=== PATIENT | female | born 1965 | race Caucasian/White ===

== ENCOUNTER → 2020-07-17 01:20 | Outpatient (CLI) | payer OTHER, SELFPAY ==
[2020-07-18 19:27] LABS: SARS-CoV-2 RNA PCR Negative
== END ==
PROVIDERS: PCP Family Medicine; Visit Provider Internal Medicine Gastroenterology
DX: Z01.812 Encounter for preprocedural laboratory examination (principal); Z20.822 Contact with and (suspected) exposure to COVID-19
CPT/HCPCS: C9803; U0003; U0005

== ENCOUNTER 2020-07-20 02:06 | Day surgery (SDC) | payer OTHER, SELFPAY ==
[2020-07-10 13:45] VITALS: BMI 30.1
[2020-07-20 08:52] VITALS: BP 124/81; PULSE 87; RESP 16; TEMP 36.5; O2SAT 100
[2020-07-20] MEDS: LACTATED RINGERS 1,000 ML 150 ML IV CONT (09:05)
--- NOTE | 2020-07-20 09:21 | WPDANESEPPF ---
Anes - Initial Pre Proc Eval Procedure: Operation Date: 07/20/20 10:00 Proposed Procedures p Screening Colonoscopy - Ravin Jones MD Date/Time: 07/20/20 09:21 Surgeon: Ravin Jones MD Pre Op Diagnosis: neoplasm screening Patient Data Age: 55 Gender: F Height: 5 ft Weight: 68.8 kg Last Vital Signs Temp 97.7 F 07/20/20 08:52 Pulse 87 07/20/20 08:52 Resp 16 07/20/20 08:52 BP 124/81 07/20/20 08:52 Pulse Ox 100 07/20/20 08:52 Allergies Allergy/AdvReac Type Severity Reaction Status Date / Time No Known Allergies Allergy Unverified 07/20/20 08:51 Home Medications Medication Instructions Recorded Confirmed Type No Home Medications 07/10/20 07/20/20 History Patient hx anesthesia problems: none Family hx anesthesia problems: none PMFSH Past Medical History Medical History (Updated 07/20/20 @ 09:21 by Juvencio Lopez MD) Overweight (BMI 25.0-29.9) Social History Social History Alcohol intake: current Drinks per week: 2 Living arrangements: with family Gender identity (if verbalized by the patient): Female Spiritual care concerns: No Anes - Eval Final PreProcedure Day of Procedure 07/20/20 09:21 Patient weight: overweight Heart: regular rate and rhythm Lungs: clear to auscultation Airway: Mallampati scale class III Neurological: alert and oriented Last oral intake: >/= 8 hours ASA classification: II Emergent: no Anesthetic plan: proceed Anesthesia type and monitoring: general GIVS and standard monitoring Informed Consent: The patient's anesthetic plan and its attendant risks and benefits were discussed with the patient/family/POA. Questions were solicited and answers provided to the satisfaction of the patient/family/POA.
--- NOTE | 2020-07-20 09:23 | PM.HPGS ---
History of Present Illness History of Present Illness Consent: Risks, benefits, and alternatives have been discussed and questions answered. Patient agrees to proceed with procedure. Chief complaint: neoplasm screening Narrative: Justyna Mendenhall is a 55 year old female referred for colon cancer screening. This is her 1st colonoscopy Review of Systems Review of Systems: All systems reviewed & are unremarkable except as noted in HPI and below PMFSH Past Medical History Medical History Overweight (BMI 25.0-29.9) Social History Social History Alcohol intake: current Drinks per week: 2 Living arrangements: with family Gender identity (if verbalized by the patient): Female Spiritual care concerns: No Meds Home Medications and Allergies Home Medications Medication Instructions Recorded Confirmed Type No Home Medications 07/10/20 07/20/20 History Allergies Allergy/AdvReac Type Severity Reaction Status Date / Time No Known Allergies Allergy Unverified 07/20/20 08:51 Vital Signs Vital Signs - 24 hr 07/20/20 08:52 Temperature 36.5 C Pulse Rate 87 Respiratory Rate 16 Blood Pressure 124/81 Pulse Oximetry 100 Exam Resp: Auscultation: clear to auscultation bilaterally Cardio: Rate: regular rate Rhythm: regular rhythm GI: GI Palp: Yes Soft to palpation and No Tenderness to palpation present (GI) Assessment and Plan Assessment and plan (1) Colon cancer screening: Code(s): Z12.11 - Encounter for screening for malignant neoplasm of colon Status: Acute Assessment and Plan: Colonoscopy with possible biopsy or polypectomy or cautery or injection of substances.
[2020-07-20 10:15] VITALS: BP 91/59; PULSE 76; RESP 20
[2020-07-20 10:25] VITALS: BP 99/64; PULSE 73; RESP 19; O2SAT 100
[2020-07-20 10:35] VITALS: BP 116/74; PULSE 70; RESP 19; O2SAT 98
== END 2020-07-20 10:45 | disposition home or self-care (01) ==
PROVIDERS: PCP Family Medicine; Visit Provider Internal Medicine Gastroenterology
PROC: 0DJD8ZZ Inspection of Lower Intestinal Tract, Via Natural or Artificial Opening Endoscopic (ICD-10-PCS; CPT 45378; principal; 2020-07-20 10:00)
DX: Z12.11 Encounter for screening for malignant neoplasm of colon (principal)
CPT/HCPCS: 45378; C9803; J2001; J2704; J7120; U0003; U0005

== ENCOUNTER 2024-08-09 14:29 | Emergency (ER) | payer OTHER, SELFPAY ==
--- NOTE | ~2024-08-09 | CT_ITS ---
CT abdomen pelvis w con Ordering provider: Miko Leung MD History: 59 years Female with . Abdominal pain . Comparison: November 29, 2014 Technique: CT abdomen and pelvis with IV and without oral contrast. Automated exposure control and it erative reconstruction technique were employed. The dose-length product was 410.45 mGy-cm. 100 ML Omn ipaque 350 was given IV. Findings: VISUALIZED LOWER CHEST: Dependent atelectatic changes. UPPER ABDOMINAL ORGANS: Liver: Fat infiltration. Gallbladder: Status post cholecystectomy. Spleen: Normal. Stomach/duodenum: Normal. Pancreas: Normal. Adrenals: Normal. Kidneys: Normal. PELVIC ORGANS: The bladder is underfilled. BOWEL AND MESENTERY: Colon: No evidence of diverticulitis. No evidence of diverticulitis. Small Bowel: Normal. No obstruction. Peritoneum/mesentery: No free air or free fluid. No mesenteric lymphadenopathy. RETROPERITONEUM: Normal aorta. No retroperitoneal lymphadenopathy. MUSCULOSKELETAL: Superficial soft tissues: Small fat-containing umbilical hernia. The superficial soft tissues are nor mal. Bones: Normal spine. IMPRESSION: 1. No evidence of appendicitis, diverticulitis or intestinal obstruction. 2. Fat infiltration of the liver. 3. Small fat-containing umbilical hernia. Reviewed, dictated and finalized at location A.
[2024-08-09 14:38] VITALS: BP 116/72; PULSE 101; RESP 16; TEMP 36.9; O2SAT 97
--- OUTSIDE RECORDS SUMMARY | 2024-08-09 15:23 | XMS_ITS | Clinical Summary ---
Author Organization [facility] Address [address] [place] [address] Care Team Providers Care Sales And Training Specialist Name Role Phone Amanda Joann Gustafson [facility] Primary Care Provider + Allergies Active Allergy Reactions Criticality Noted Date Comments Gramineae Pollens Runny Nose Low 01/02/2023 Medications Blood Glucose Monitoring Suppl (POGO AUTOMATIC BLOOD GLUCOSE) Device see administration instructions. 06/15/19 24 Active cetirizine (ZYRTEC) 10 MG tablet Take 1 tablet (10 mg total) by mouth daily. Active ibuprofen (MOTRIN) 200 MG tablet Take by mouth every 6 (six) hours as needed for pain Active POGO AUTOMATIC TEST CARTRIDGES Test SUBCUTANEOUSLY DAILY 08/28/19 24 Active BD PEN NEEDLE MILTON 2ND GEN 32G X 4 MM Misc USE SUBCUTANEOUSLY DAILY 08/31/19 24 Active semaglutide (OZEMPIC, 0.25 OR 0.5 MG/DOSE,) 2 MG/3ML injection (PEN)Indicatio ns:Diabetes Mellitus Inject 0.5 mg into the skin every 7 days. Indications: Diabetes 3 mL 2 08/07/19 25 Active semaglutide (OZEMPIC, 0.25 OR 0.5 MG/DOSE,) 2 MG/3ML injection (PEN)Indicatio ns:Diabetes Mellitus Inject 0.5 mg into the skin every 7 days. Indications: Diabetes 3 mL 2 05/15/19 25 025 Discontin ued(Reord er) Active Problems Problem Noted Date Diagnosed Date Type 2 diabetes mellitus wit hout complication, with long-term current use of insulin ([facility]/HCC [facility]/HCC) 02/15/2024 Class 1 obesity due to exces s calories with serious comorbidity and body mass index (BMI) of 32.0 to 32.9 in adult 02/15/2024 Fibrocystic disease of breast 01/18/2024 Sensorineural hearing loss (SNHL) of both ears 1 03/02/2023 Tinnitus of both ears 01/01/2024 Resolved Problems Problem Noted Date Diagnosed Date Resolved Date Breast lump 01/18/2024 01/18/2024 Encounters Date Type Department Care Team Description 07/27/2024 7:20 AM CDT Office Visit [facility] Family & Internal Medicine [facility] [address] [place] [address] Joann Patel, TERMITE CONTROL SERVICER- Follow Up 07/27/2024 Travel from Last 3 Months Immunizations Immunization Administration Dates Next Due Influenza Adult (Generic) 01/06/2022,,12/04/2019,2017 MMR 10/20/2016 MODERNA COVID-19 (12+) MRNA, LNP-S, PF, 100 MCG/ 0.5 ML DOSE 06/12/2020,05/15/2020 Shingrix 08/22/2022,03/07/2022 Family History Medical History Relation Comments Lung Cancer Father epiglottis cancer Father Diabetes Maternal Aunt Heart Attack Maternal Aunt COPD Mother Diabetes Mother Heart Attack Mother Hypertension Mother Lung Cancer Mother Relation Status Comments Father Maternal Aunt Alive Mother Social History Tobacco Use Types Packs/Day Years Used Date Smoking Tobacco: Never Smokeless Tobacco: Never Tobacco Cessation:Counseling Given: No Alcohol Use Standard Drinks/Week Comments No 0 (1 standard drink = 0.6 oz pur e alcohol) AUDIT-C Answer Date Recorded Frequency of Alcohol Consumption Never 09/11/2018 Average Number of Drinks Not on file 019 Frequency of Binge Drinking Not on file 08/24 PHQ-2 Answer Date Recorded Patient Health Questionnaire-2 Score 0 01/18/2024 Comments No Sex and Gender Information Value Date Recorded Sex Assigned at Female 04/08/2024 7:14 AM SUPERVISOR FEED HOUSE Legal Sex Female 7:32 PM CDT Gender Identity Not on file Sexual Orientation Not on file Last Filed Vital Signs Vital Sign Reading Time Taken Comments Blood Pressure 131/84 07/27/2024 7:10 AM CDT Pulse 68 07/27/2024 7:10 AM CDT Temperature 36.5 C (97.7 F) 07/27/2024 7:10 AM CDT Respiratory Rate 16 07/27/2024 7:10 AM CDT Oxygen Saturation 99% 07/27/2024 7:10 AM CDT Inhaled Oxygen Concentration - - Weight 70.8 kg (156 lb) 07/27/2024 7:10 AM CDT Height 149.9 cm (4' 11) 07/27/2024 7:10 AM CDT Body Mass Index 31.51 07/27/2024 7:10 AM CDT Plan of Treatment Upcoming Encounters Date Type Department Care Team (Late st Contact Info) Description 10/28/2024 7:20 AM CDT Office Visit [facility] Medical Group Family & Internal Medicine - [place] [id number] [place] [phone] Tri Ho, PACKAGE DESIGNER [address] [facility] [address] [facility][note 2]. [place] [address] Health Maintenance Due Date Last Done Comments Annual Physical 1968 PHQ-2 (Physician [place]) 02/24/2024 01/18/2024 Diabetes: Retinopathy Eye Exam 08/26/2024 Postponed from 1985 (Awaiting Documentation) Hepatitis C 08/30/2024 Postponed from 1985 (Future Appointment) COVID-19 Vaccine ( season) 2025 03/07/2022, 01/10/2021, 06/12/2020, Additional history exists Postponed from 10/25/2023 (Patient Refused) DTaP, Tdap and Td Vaccines (1 - Tdap) 01/17/2025 Postponed from 1986 (Future Appointment) Hemoglobin A1C 01/26/2025 07/27/2024, 03/26, 01/18/2024 Kidney Health Evaluation 04/08/2025 04/08/2024 Lipid Panel 04/08/2025 04/08/2024 Hepatitis B Vaccines (1 of 3 - 19+ 3-dose series) 07/27/2025 Postponed from 1986 (Patient/Guardian Refusal) Mammogram Screening 07/27/2025 Postpone d from 2007 (Going to Outside Clinic) Pneumococcal Vaccine: 50+ Years (1 of 2 - PCV) 07/27/2025 Postponed from 1986 (Patient Refused) Colorectal Cancer Screening Colonoscopy (10 Years) 02/23/2030 Postponed from 1967 (Future Appointment) Zoster Vaccines Completed 08/22/2022, 03/07/2022 Meningococcal B Vaccine Aged Out No l onger eligible based on patient's age to complete this topic Meningococcal Vaccine Aged Out No gogo eden eligible based on patient's age to complete this topic RSV Immunizations Under 20 Months Aged Out No longer eligible based on patient's age to complete this topic Procedures Procedure Name Priority Date/Time Associated Diagnosis Comments COLLECT.CAPILLARY (FNGR,HEEL,EAR) Routine 07/27/2024 7:11 AM CDT Type 2 diabetes mellitus without complication, with long-term current use of insulin ([facility]) HEMOGLOBIN, GLYCOSYLATED Routine 07/27/2024 Type 2 diabetes mellitus without complication, with long-term current use of insulin ([facility]) LIPID PANEL Routine 04/08/2024 7:16 AM SUPERVISOR FEED HOUSE Type 2 diabetes mellitus without complication, with long-term current use of insulin ([facility]) from Last 3 Months or Most Recently Relevant to Health Maintenance Results * HEMOGLOBIN, GLYCOSYLATED (07/27/2024) HGB A1C 6.1 % [id number] NORI [place] 07/27/2024 Joann Patel [facility] Final Re sult [id number] [facility], [place] [address] [place] [address], [place] [phone] * (ABNORMAL) LIPID PANEL (04/08/2024 7:16 AM SUPERVISOR FEED HOUSE) CHOLESTEROL 196 <200.0 MG/DL 04/08/2024 2:11 PM [facility] TRIGLYCERIDES 276(H) <150 MG/DL 04/08/2024 2:11 PM [facility] HDL 44 >40.0 MG/DL 04/08/2024 2:11 PM [facility] LDL (CALCULATED) 97 <100 MG/DL 04/08/2024 2:11 PM [facility] NON HDL CHOLESTEROL 152(H) <130 MG/DL 04/08/2024 2:11 PM [facility] CHOL/HDL RATIO 4.5 0.0 - 4.5 04/08/2024 2:11 PM [facility] VLDL CALCULATION 55 5 - 55 MG/DL 04/08/2024 2:11 PM [facility] LIPID INTERPRETATION 04/08/2024 2:11 PM [facility] Comment: NIH CONCENSUS REPORT RECOMMENDATIONS: ADULT CHILD LOW RISK: CHOLESTEROL <200 <170 TRIGLYCERIDE <150 --- HDL >=60 --- LDL <100 <110 BORDERLINE: CHOLESTEROL 200-239 170-199 TRIGLYCERIDE 150-199 --- HDL 40-59 --- LDL 100-159 110-129 HIGH RISK: CHOLESTEROL >=240 >=200 TRIGLYCERIDE >=200 --- HDL <40 --- LDL >=160 >=130 04/08/2024 7:16 AM SUPERVISOR FEED HOUSE Joann Patel [facility] Final Re sult [facility] [address] [facility] [place] [address], [place] [phone] from Last 3 Months or Most Recently Relevant to Health Maintenance [place] [address] [place] [address] Care Teams Sales And Training Specialist Relationship Specialty Start Date End Date Joann Patel, TERMITE CONTROL SERVICER-BC [address], [address] [place] [address] PCP - General Nurse Practitioner Family 01/11/2408/23
[2024-08-09 16:00] LABS: Basophils Absolute Auto 0.1 K/mm3 (0.0-0.1); Basophils Percent Auto 0.4 % (0.2-1.2); Eosinophils Absolute Auto 0.3 K/mm3 (0-0.3); Eosinophils Percent Auto 2.7 % (0-4.4); Hematocrit 46.4 % (37.0-47.0); Hemoglobin 15.8 g/dL (12.0-15.0); Immature Granulocyte Absolute 0.03 K/mm3 (0.00-0.031); Immature Granulocyte Percent A 0.2 % (0-0.5); Lymphocytes Absolute Auto 4.34 K/mm3 (0.9-3.2); Lymphocytes Percent Auto 34.8 % (18.3-44.2); Mean Corpuscular HGB Conc 34.1 g/dl (32-36); Mean Corpuscular Hemoglobin 30.8 pg (26-34); Mean Corpuscular Volume 90.4 fl (80-100); Mean Platelet Volume 9.6 fl (7.4-10.4); Monocytes Absolute Auto 0.8 K/mm3 (0.1-0.6); Monocytes Percent Auto 6.6 % (2.6-8.5); Neutrophils Absolute Auto 6.9 K/mm3 (1.3-6.7); Neutrophils Percent Auto 55.3 % (45.5-73.1); Platelet Count Result 340 k/mm3 (150-375); Red Blood Count 5.13 M/mm3 (4.2-5.4); Red Cell Distribution Width 12.9 % (11.5-14.5); White Blood Count 12.5 K/mm3 (4.5-10.0)
[2024-08-09 16:11] LABS: Alanine Aminotransferase 27 U/L (6-35); Albumin Level 4.8 g/dL (3.5-5.1); Alkaline Phosphatase 82 U/L (38-126); Anion Gap 13 mmol/L (4-12); Aspartate Amino Transferase 29 U/L (14-36); Bilirubin,Total 1.1 mg/dL (0.2-1.3); Blood Urea Nitrogen 18 mg/dL (7-17); Calcium 9.8 mg/dL (8.4-10.2); Carbon Dioxide 22 mmol/L (22-30); Chloride 105 mmol/L (98-107); Estimated Glomerular Filt Rate 56; Glucose 129 mg/dL (65-110); Lipase 95 U/L (23-300); Potassium 3.4 mmol/L (3.4-5.0); Sodium 140 mmol/L (137-145); Total Protein 8.8 g/dL (6.3-8.2)
[2024-08-09 16:40] LABS: Add Urine Microscopic? YES; Appearance Urine Clear (Clear); Bacteria Urine 2+ /hpf; Bilirubin Urine 2+ (Negative); Blood Urine Negative (Negative); Color Urine Dark Yellow (Yellow); Glucose Urine UA Negative (Negative); Ketones Urine 1+ mg/dL (Negative); Leukocyte Esterase Ur Negative LEU/UL (Negative); Need Manual Microscopic Reviewed; Nitrate Urine Negative (Negative); Protein Urine 1+ mg/dL (Negative); Squamous Epithelial Cell Urine Few /hpf (Few); WBC Urine 0-5 /hpf (0-3)
--- NOTE | 2024-08-09 16:40 | ED_ITS ---
HPI - General Adult General Chief complaint: Abdominal Pain Stated complaint: abdominal pain, diarrhea Time Seen by Provider: 08/09/24 16:00 History of Present Illness HPI narrative: Patient is a 59-year-old female who presents emergency department chief complaint of nausea vomiting diarrhea patient states symptoms started yesterday reports he has been having liquid stool and reports it is worse whenever she eats or drinks. Patient states that she has had a prior cholecystectomy reports that hysterectomy patient states she is concerned that she may have a appendicitis. Related Data Home Medications ?Medication ?Instructions ?Recorded ?Confirmed ?Last Taken ?Type cetirizine 10 mg capsule (Zyrtec) 10 mg PO DAILY PRN 03/18/23 07/19/24 Unknown History semaglutide 0.25 mg or 0.5 mg (2 0.25 mg subcut WEEKLY 07/19/24 07/19/24 Unknown History mg/1.5 mL) subcutaneous pen injector (Telera) Allergies Allergy/AdvReac Type Severity Reaction Status Date / Time No Known Allergies Allergy Verified 08/09/24 14:30 Review of Systems 2 Review of Systems: A 10 system review of systems was completed on the patient and is negative except for what is stated in the HPI. Nursing and ancillary documentation was reviewed. [facility] Past Medical History Medical History Cyst of left breast Screening mammogram, encounter for Type 2 diabetes mellitus with obesity Allergic rhinitis Surgical History Surgical History Hx of wisdom tooth extraction 1985 History of robot-assisted laparoscopic hysterectomy (05/04/20) History of colposcopy (04/08/01) colposcopy, cx bx: severe dysplasia, LINDSEY III H/O LEEP (05/12/01) Leep conization, hgsil, ca-in-situ, severe dysplasia; Paracervical block Hx of cholecystectomy (03/10/05) History of hysteroscopy (01/25/09) hysteroscopy; Polypectomy H/O tubal ligation (02/01/09) Laparoscopic tubal ligation; NovaSure endometrial ablation S/P breast biopsy, left (02/04/12) left breast FNA - neg, benign cyst Family History Family History Mother Diabetes mellitus Hypertension Heart disease Father Diabetes mellitus Hypertension Malignant tumor of pharynx Other Breast cancer great aunt / cousin Social History Social History Smoking status: Never smoker Second hand tobacco smoke exposure: No Alcohol intake: current Drinks per week: 2 Substance use: never Substance use type: does not use Do You Feel Safe in your Home?: Yes Lack of Transportation: No Lack of Food: Never True Current Housing: I Have Housing Concerned About Future Housing: No Difficulty Paying Gas/Electric Bills: No Difficulty Paying for Meds: No Currently Unemployed: No Education: Bachelor's Degree Difficulty w/ Childcare or Family Care: No Living arrangements: with family Additional living arrangements comments: Occupation/Education: 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 HEAD: Normocephalic, atraumatic. EYES: PERRLA and EOMI. ENT: Nares clear, no rhinorrhea or epistaxis. Mucous membranes moist. NECK: Supple. CHEST: Clear to auscultation. No respiratory distress. HEART: Regular rate and rhythm. No murmur heard. Normal peripheral pulses. ABDOMEN: Soft, tenderness to palpation worse in the right lower quadrant, nondistended, normal active bowel sounds. EXTREMITIES: Normal range of motion. No edema. SKIN: Warm, dry, no rash. NEURO: No focal deficits. Alert and oriented x3. PSYCH: Normal mood and affect. Course Vital Signs Vital signs: Vital Signs Temperature 36.9 C 08/09/24 14:38 Pulse Rate 101 H 08/09/24 14:38 Respiratory Rate 16 08/09/24 14:38 Blood Pressure 116/72 08/09/24 14:38 Pulse Oximetry 97 08/09/24 14:38 Oxygen Delivery Room Air 08/09/24 14:38 Temperature 36.9 C 08/09/24 14:38 Pulse Rate 90 08/09/24 17:25 Respiratory Rate 18 08/09/24 17:25 Blood Pressure 126/85 08/09/24 17:25 Pulse Oximetry 99 08/09/24 17:25 Oxygen Delivery Room Air 08/09/24 14:38 Medical Decision Making [facility] Narrative Medical decision making narrative: Differential diagnosis includes appendicitis, diverticulitis colitis, intra- abdominal infection, UTI, pyelonephritis Laboratory studies were obtained on the patient showed a CBC with white count 12.5 electrolytes showed a BUN of 18 and creatinine 1.02 glucose was 129 liver enzymes are normal lipase was 95 Vital Signs Vital Signs: Vital Signs Temperature 36.9 C 08/09/24 14:38 Pulse Rate 101 H 08/09/24 14:38 Respiratory Rate 16 08/09/24 14:38 Blood Pressure 116/72 08/09/24 14:38 Pulse Oximetry 97 08/09/24 14:38 Oxygen Delivery Room Air 08/09/24 14:38 Temperature 36.9 C 08/09/24 14:38 Pulse Rate 90 08/09/24 17:25 Respiratory Rate 18 08/09/24 17:25 Blood Pressure 126/85 08/09/24 17:25 Pulse Oximetry 99 08/09/24 17:25 Oxygen Delivery Room Air 08/09/24 14:38 Lab Data 08/09/24 15:54 08/09/24 15:54 Labs: Lab Results 08/09/24 08/09/24 Range/Units 15:54 16:00 WBC 12.5 H (4.5-10.0) K/mm3 RBC 5.13 (4.2-5.4) M/mm3 Hgb 15.8 H (12.0-15.0) g/dL Hct 46.4 (37.0-47.0) % MCV 90.4 (80-100) fl MCH 30.8 (26-34) pg MCHC 34.1 (32-36) g/dl RDW 12.9 (11.5-14.5) % Plt Count 340 (150-375) k/mm3 MPV 9.6 (7.4-10.4) fl Immature Gran % (Auto) 0.2 (0-0.5) % Neut % (Auto) 55.3 (45.5-73.1) % Lymph % (Auto) 34.8 (18.3-44.2) % [place] % (Auto) 6.6 (2.6-8.5) % Eos % (Auto) 2.7 (0-4.4) % Baso % (Auto) 0.4 (0.2-1.2) % Lymph # (Auto) 4.34 H (0.9-3.2) K/mm3 [place] # (Auto) 0.8 H (0.1-0.6) K/mm3 Eos # (Auto) 0.3 (0-0.3) K/mm3 Baso # (Auto) 0.1 (0.0-0.1) K/mm3 Abs Immat Gran (auto) 0.03 (0.00-0.031) K/mm3 Absolute Neuts (auto) 6.9 H (1.3-6.7) K/mm3 Absolute Nucleated RBC 0.000 (0.0-0.012) K/mm3 Nucleated RBC % 0.0 (0.0-0.2) % Sodium 140 (137-145) mmol/L Potassium 3.4 (3.4-5.0) mmol/L Chloride 105 (98-107) mmol/L Carbon Dioxide 22 (22-30) mmol/L Anion Gap 13 H (4-12) mmol/L BUN 18 H (7-17) mg/dL Creatinine 1.02 H (0.7-1.0) mg/dL Estim Creat Clear Calc Not Reportable Estimated GFR 56 L (59 - ) Glucose 129 H (65-110) mg/dL Calcium 9.8 (8.4-10.2) mg/dL Total Bilirubin 1.1 (0.2-1.3) mg/dL AST 29 (14-36) U/L ALT 27 (6-35) U/L Alkaline Phosphatase 82 (38-126) U/L Total Protein 8.8 H (6.3-8.2) g/dL Albumin 4.8 (3.5-5.1) g/dL Lipase 95 (23-300) U/L Urine Color Dark yellow (Yellow) Urine Appearance Clear (Clear) Urine pH 5.0 (5.0-9.0) Ur Specific [place] 1.040 H (1.001-1.035) Urine Protein 1+ H (Negative) mg/dL Urine Glucose (UA) Negative (Negative) mg/dL Urine Ketones 1+ H (Negative) mg/dL Ur Blood (Man) Negative (Negative) Urine Nitrate Negative (Negative) Urine Bilirubin 2+ H (Negative) Urine Urobilinogen 1.0 (<2.0) mg/dL Add Ur Microanalysis Reviewed Leukocyte Esterase Rfl Negative (Negative) GASPER/UL Urine RBC 3-5 H (0-2) /hpf Urine WBC 0-5 (0-3) /hpf Ur Squamous Epith Cells Few (Few) /hpf Urine Bacteria 2+ H /hpf Urine Casts 6-10 Discharge Plan Discharge Clinical Impression: Gastroenteritis Patient Disposition: Home Condition: Stable Instructions: Antibiotic Form, Gastroenteritis (ED), Abdominal Pain (ED) Patient Language: Sri Lankan Prescriptions: New dicyclomine 20 mg tablet 20 mg PO QID PRN (Reason: abdominal discomfort) Qty: 20 0RF ondansetron 4 mg tablet,disintegrating 4 mg PO Q8H PRN (Reason: nausea and vomiting) Qty: 10 0RF dicyclomine 20 mg tablet 20 mg PO QID PRN (Reason: abdominal discomfort) Qty: 20 0RF ondansetron 4 mg tablet,disintegrating 4 mg PO Q8H PRN (Reason: nausea and vomiting) Qty: 10 0RF No Action Zyrtec 10 mg capsule 10 mg PO DAILY PRN Ozempic 0.25 mg or 0.5 mg(2 mg/1.5 mL) pen injector 0.25 mg subcut WEEKLY Rx Instructions: for 4 weeks (DME) blood-glucose meter [Pogo Automatic Blood Gluc Sys] Misc See Rx Instructions .Route Qty: 1 0RF Rx Instructions: As directed (DME) pen needle, diabetic [BD Ramya 2nd Gen Pen Needle] 32 gauge x 5/32 needle See Rx Instructions .ROUTE .COMPLEX Qty: 100 3RF Dose Instruction: SUBCUTANEOUSLY DAILY Rx Instructions: SUBCUTANEOUSLY DAILY (DME) Pogo Automatic Test Cartridge 30 gauge combo pack See Rx Instructions .Route Qty: 150 1RF Rx Instructions: subcutaneously daily Follow-up/Referrals: Amanda,Joann Beal, STATUARY PAINTER [Primary Care Provider] - Time of Disposition: 17:19
--- OUTSIDE RECORDS SUMMARY | 2024-08-09 16:47 | XMS_ITS | Clinical Summary ---
Author Organization [facility] Address [address] [place] [address] Care Team Providers Care Stringing Machine Tender Name Role Phone Amanda Joann Gustafson [facility] Primary Care Provider + Allergies Active Allergy [...] complication, with long-term current use of insulin ([facility]/HCC [facility]/H[facility]) 02/15/2024 Class 1 obesity due to exces [...] Description 07/27/2024 7:20 AM CDT Office Visit [facility] Family & Internal Medicine [facility] [address] [place] [address] Joann Patel, WAREHOUSE LOADER- Follow Up 07/27/2024 Travel from Last 3 [...] Sex Assigned at Female 04/08/2024 7:14 AM PROFESSOR OF COUNSELING Legal Sex Female 7:32 PM CDT Gender [...] Description 10/28/2024 7:20 AM CDT Office Visit [facility] Medical Group Family & Internal Medicine - [place] [id number] [place] [phone] Tri Ho, ASSISTANT CORPORATION COUNSEL [address] [facility] Suite [facility] [address] Health Maintenance Due Date Last Done Comments Annual Physical 1970 PHQ-2 (Physician [place]) 02/24/2024 01/18/2024 Diabetes: Retinopathy Eye Exam 08/26/2024 [...] complication, with long-term current use of insulin ([facility] HHS/[facility]) HEMOGLOBIN, GLYCOSYLATED Routine 07/27/2024 Type 2 diabetes mellitus without complication, with long-term current use of insulin ([facility]) LIPID PANEL Routine 04/08/2024 7:16 AM PROFESSOR OF COUNSELING Type 2 diabetes mellitus without complication, with long-term current use of insulin ([facility]) from Last 3 Months or Most Recently Relevant to Health Maintenance Results * HEMOGLOBIN, GLYCOSYLATED (07/27/2024) HGB A1C 6.1 % [id number] NORI [place] 07/27/2024 Joann Patel [facility] Final Re sult [id number] [facility], [place] [address] [place] [address], [place] [phone] * (ABNORMAL) LIPID PANEL (04/08/2024 7:16 AM PROFESSOR OF COUNSELING) CHOLESTEROL 196 <200.0 MG/DL 04/08/2024 2:11 PM [facility] TRIGLYCERIDES 276(H) <150 MG/DL 04/08/2024 2:11 PM [facility] HDL 44 >40.0 MG/DL 04/08/2024 2:11 PM [facility] LDL (CALCULATED) 97 <100 MG/DL 04/08/2024 2:11 PM [facility] NON HDL CHOLESTEROL 152(H) <130 MG/DL 04/08/2024 2:11 PM [facility] CHOL/HDL RATIO 4.5 0.0 - 4.5 04/08/2024 2:11 PM [facility] VLDL CALCULATION 55 5 - 55 MG/DL 04/08/2024 2:11 PM [facility] LIPID INTERPRETATION 04/08/2024 2:11 PM [facility] Comment: NIH CONCENSUS REPORT RECOMMENDATIONS: ADULT CHILD LOW RISK: CHOLESTEROL <200 <170 TRIGLYCERIDE <150 --- HDL >=60 --- LDL <100 <110 BORDERLINE: CHOLESTEROL 200-239 170-199 TRIGLYCERIDE 150-199 --- HDL 40-59 --- LDL 100-159 110-129 HIGH RISK: CHOLESTEROL >=240 >=200 TRIGLYCERIDE >=200 --- HDL <40 --- LDL >=160 >=130 04/08/2024 7:16 AM PROFESSOR OF COUNSELING Joann Patel [facility] Final Re sult [facility] [address] [place] [address], [place] [phone] from Last 3 Months or Most Recently Relevant to Health Maintenance [place] [address] Care Teams Stringing Machine Tender Relationship Specialty Start Date End Date Joann Patel, WAREHOUSE LOADER-BC [address], [address] [place] [address] PCP - General Nurse Practitioner Family 01/11/2408/23
[2024-08-09] MEDS: DICYCLOMINE HCL INJ 20 MG/2 ML VIAL IM (16:48)
[2024-08-09] MEDS: SODIUM CHLORIDE 0.9% IV 1,000 ML 999 ML IV CONT (16:48)
[2024-08-09] MEDS: ONDANSETRON INJ 4 MG/2 ML VIAL IV PUSH (16:48)
[2024-08-09 17:25] VITALS: BP 126/85; PULSE 90; RESP 18; O2SAT 99
== END 2024-08-09 17:40 | disposition home or self-care (01) ==
PROVIDERS: Family Medicine; Emergency Provider Emergency Medicine; PCP Nurse Practitioner Family
DX: K52.9 Noninfective gastroenteritis and colitis, unspecified (principal); E11.9 Type 2 diabetes mellitus without complications; E66.9 Obesity, unspecified; Z68.30 Body mass index [BMI] 30.0-30.9, adult; Z90.710 Acquired absence of both cervix and uterus; Z90.49 Acquired absence of other specified parts of digestive tract; Z79.85 Long-term (current) use of injectable non-insulin antidiabetic drugs; Z79.899 Other long term (current) drug therapy
CPT/HCPCS: 36415; 74177; 80053; 81001; 83690; 85025; 96361; 96372; 96374; 99284; J0500; J2405; J7030; Q9967

== ENCOUNTER 2024-08-12 08:31 | Outpatient (CLI) | payer OTHER, SELFPAY ==
--- NOTE | ~2024-08-12 | MMUS_ITS ---
EXAMINATION: MM diagnostic susy BI w tejas, US breast BI complete HISTORY: Breast cysts. TECHNIQUE: Additional 3-D tomosynthesis images of the breasts were performed and synthetic 2-D images were generated. CAD analysis was submitted and interpreted. High resolution bilateral complete breas t ultrasound was performed. COMPARISON: Comparison to multiple prior studies sequentially, with oldest reviewed study dated 06/02. BREAST PARENCHYMAL COMPOSITION: Dense: The breasts are heterogeneously dense, which may obscure small masses FINDINGS: MAMMOGRAPHIC FINDINGS: There are no suspicious masses, calcifications or architectural distortion in either breast to sugges t malignancy. ULTRASOUND: Complete US of all 4 quadrants of the breast/s and retroareolar region was reviewed. Normal heterogen eous echotexture without focal solid or cystic mass. IMPRESSION: 1. No evidence for malignancy in either breast. 2. . Routine yearly screening mammogram and regular clinical breast examination are recommended. BI-RADS Category 1: Negative Reviewed, dictated and finalized at location A. IMPRESSION: 1. No evidence for malignancy in either breast. 2. . Routine yearly screening mammogram and regular clinical breast examination are recommended. BI-RADS Category 1: Negative
== END 2024-08-12 08:32 | disposition home or self-care (01) ==
LOC: MICIMG 08:32
PROVIDERS: PCP Obstetrics & Gynecology; Visit Provider Obstetrics & Gynecology
DX: N60.02 Solitary cyst of left breast (principal)
CPT/HCPCS: 76641; 77062; 77066; G0279